=== PATIENT | female | born 1960 | race Caucasian/White ===

== ENCOUNTER 2016-10-15 23:33 | Emergency (ER) | payer SELFPAY ==
--- NOTE | 2016-10-16 00:30 | NUR ---
PATIENT LEFT WITHOUT BEING SEEN BY DR. MONAE. NO FURTHER CARE PROVIDED FOR PATIENT.
== END 2016-10-16 00:30 | disposition left against medical advice (07) ==
LOC: MED 23:33
DX: F41.9 Anxiety disorder, unspecified (principal); Z53.21 Procedure and treatment not carried out due to patient leaving prior to being seen by health care provider

== ENCOUNTER 2018-02-09 02:15 | Emergency (ER) | payer OTHER ==
[~2018-02-09] VITALS: Ht 157.5 cm; Wt 69.1 kg
[2018-02-09 02:15] VITALS: BP 114/80
[~2018-02-09 02:15] MED LIST: ESK300 PO
--- NOTE | 2018-02-09 02:15 | NUR ---
PATIENT AMBULATED TO ER BED 12.
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
--- NOTE | 2018-02-09 03:00 | NUR ---
DR. MONAE AT BEDSIDE TO EVALUATE PT.
[2018-02-09] MEDS ORDERED: NACL 0.9% 1,000 ML IV ONE (03:10)
--- NOTE | 2018-02-09 03:18 | NUR ---
PATIENT ELOPED FROM FACILITY. DISCHARGE INSTRUCTIONS NOT GIVEN TO PATIENT. DR. MONAE NOTIFIED.
== END 2018-02-09 03:18 | disposition left against medical advice (07) ==
LOC: MED 02:15
DX: R10.13 Epigastric pain (principal); Z53.21 Procedure and treatment not carried out due to patient leaving prior to being seen by health care provider

== ENCOUNTER 2018-02-09 04:25 | Inpatient (IN) | payer OTHER ==
[~2018-02-09] VITALS: Ht 157.5 cm; Wt 69.9 kg
[2018-02-09 04:25] VITALS: BP 114/74
--- NOTE | 2018-02-09 04:25 | NUR ---
BIB EMS WITH RESTRAINTS. RESTRAINTS REMOVED UPON [facility] ER ADDMISSION. PT COOPERATIVE. PT WAS PUT ON 5150 HOLD BY CARLITOS BHAT. PT WAS SEEN WALKING IN THE STREET WITH TRAFFIC. PT SHOWS INTENT TO HARM SELF AND IS A DANGER TO SELF. SHE IS A&Ox4. VSS. PLACED IN ROOM 5 WITH SITTER KAMRYN ADAN. SUICIDAL PRECAUTIONS IN PLACE. ER AWARE. CONTINUE TO MONITOR.
--- NOTE | 2018-02-09 04:25 | NUR ---
PT AMANDA BLS. TAKEN TO BED 5
--- NOTE | 2018-02-09 04:32 | NUR ---
PT DISROBED COMPLETELY AND DRESSED IN HOSPITAL GOWN AND SOCKS. PERSONAL BELONGINGS GIVEN TO SECURITY FOR STORING. BEDSIDE EQUIPMENT REMOVED AND CABINETS AND CONTAINERS LOCKED. SITTER PLACED AT BEDSIDE WITHIN 3 FEET FOR MONITORING.
[2018-02-09] MEDS ORDERED: NACL 0.9% 1,000 ML IV ONE (04:46)
[2018-02-09 05:18] LABS: BASOPHILS # (AUTO) 0.1 K/uL (0.00-0.22); BASOPHILS % (AUTO) 0.7 % (0.0-2.0); EOSINOPHILS # (AUTO) 0.1 K/uL (0-0.4); EOSINOPHILS % (AUTO) 1.7 % (0.0-4.0); HEMATOCRIT 33.6 % (36-48); LYMPHOCYTES # (AUTO) 1.6 K/uL (2.5-16.5); LYMPHOCYTES % (AUTO) 18.1 % (20.5-51.1); MEAN CORPUSCULAR HEMOGLOBIN 30 pg (27-31); MEAN CORPUSCULAR HGB CONC 33 g/dL (33-37); MEAN CORPUSCULAR VOLUME 91.9 fL (80-94); MONOCYTES # (AUTO) 0.8 K/uL (0.8-1.0); MONOCYTES % (AUTO) 9.2 % (1.7-9.3); NEUTROPHILS # (AUTO) 6.2 K/uL (1.8-7.7); NEUTROPHILS % (AUTO) 70.3 % (42.2-75.2); PLATELET COUNT (AUTO) 228 K/uL (140-450); RED BLOOD CELL COUNT(AUTO) 3.66 MIL/uL (4.20-5.40); RED CELL DISTRIBUTION WIDTH 15.3 % (11.6-13.7); WHITE BLOOD COUNT (AUTO) 8.8 K/uL (4.8-10.8)
[2018-02-09 05:26] LABS: BILIRUBIN,URINE NEGATIVE (NEGATIVE); BLOOD, URINE SMALL (NEGATIVE); LEUKOCYTE ESTERASE ,URINE NEGATIVE (NEGATIVE); NITRITE, URINE NEGATIVE (NEGATIVE); UGLUCOSE NEGATIVE (NEGATIVE)
[2018-02-09 05:27] LABS: APPEARANCE,URINE CLEAR (CLEAR); COLOR,URINE YELLOW (YELLOW)
[2018-02-09 05:31] LABS: RBC,URINE 0-5 (RARE) /HPF (0-5); WBC,URINE 0-5 (RARE) /HPF (0-5)
[2018-02-09 05:32] LABS: BARBITURATE, URINE NEG. ng/ml (NEG <=200); BENZODIAZEPINE, URINE NEG. ng/mL (NEG <=200); CANNABINOID, URINE NEG. ng/mL (NEG <=50); COCAINE, URINE NEG. ng/mL (NEG <=300); OPIATE, URINE NEG. ng/mL (NEG <=2000); PHENCYCLIDINE SCREEN,URINE NEG. ng/mL (NEG <=25)
[2018-02-09 05:58] LABS: ALBUMIN 2.8 g/dL (3.4-5.0); ANION GAP 13.1 (8-16); ASPARTATE AMINOTRANSFERASE 40 U/L (15-37); CARBON DIOXIDE 23.1 mmol/L (21-32); CHLORIDE 110 mmol/L (98-107); CREATININE 1.1 mg/dL (0.6-1.3); GFR ARICAN-AMERICAN 66 mL/min (>90); GLUCOSE 153 mg/dL (74-106); POTASSIUM 3.2 mmol/L (3.5-5.1); SALICYLATE 5.3 mg/dL (2.8-20.0); SODIUM SERUM 143 mmol/L (136-145); TOTAL BILIRUBIN 0.2 mg/dL (0.0-1.0); UREA NITROGEN, BLOOD 7 mg/dL (7-18)
[2018-02-09 06:00] LABS: ACETAMINOPHEN < 0.5 ug/ml (10-30)
--- NOTE | 2018-02-09 06:21 | NUR ---
Note ericone in EDM - 02/09/18 at 0626 by JELENA Patient discharged with v/s stable. Written and verbal after care instructions given and explained by Dr Bojorquez. Patient alert, oriented and verbalized understanding of instructions. Ambulatory with steady gait. All questions addressed prior to discharge. ID band removed. Patient advised to follow up with PMD. Rx of Keflex 500 mg given. Patient educated on indication of medication including possible reaction and side effects. Opportunity to ask questions provided and answered.
--- NOTE | 2018-02-09 07:10 | NUR ---
RECEIVED REPORT FROM LEVON CONTEH FOR CONTINUITY OF CARE. KAMRYN ADAN SITTING AT BEDSIDE. PT RESTING IN NO APPEARENT DISTRESS WITH EVEN AND UNLABORED RR.
--- NOTE | 2018-02-09 07:24 | NUR ---
PT PROVIDED WITH 3 GLASSES OF ICE WATER ONE AT A TIME PER REQUEST. PT TOLERATED WELL
--- NOTE | 2018-02-09 07:26 | NUR ---
FOOD TRAY GIVEN
--- NOTE | 2018-02-09 07:28 | NUR ---
PT RAISING VOICE AND STATING " MAY THE ONES YOU LOVE TODAY" TO STAFF. ATTEMPTED TO TALK TO PT TO CALM PT. PT CONTINUES TO CURSE AND THREATEN STAFF.
--- NOTE | 2018-02-09 07:35 | NUR ---
PT CONTINUING TO YELL AND CURSE AT STAFF WITH RACIAL SLURES.
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
--- NOTE | 2018-02-09 09:29 | NUR ---
Psychaitrist evaluating patient via TelePsych.
[2018-02-09] MEDS ORDERED: diphenhydrAMINE 50 MG/ML VIAL IVP ONE (09:45)
--- NOTE | 2018-02-09 10:03 | NUR ---
PT PROVIDED WITH WATER MILK AND JUICE
[2018-02-09] MEDS ORDERED: LITHIUM CARBONATE 300 MG TAB PO SCH (10:30)
--- NOTE | 2018-02-09 10:47 | NUR ---
Late Entry- The following facilities were contacted and had no available bed: Zhane Juarez, s/w Heri [facility] [place], s/w Chad Corona [facility], [facility] [place], s/w Danika [facility], s/w Jomar [facility], s/w Moses
--- NOTE | 2018-02-09 10:52 | NUR ---
PT AMBULATED TO THE BATHROOM WITH A STEADY GAIT. PT OBSERVATION MAINTAINED
--- NOTE | 2018-02-09 10:55 | NUR ---
PT BTB AND APPEARS TO BE SLEEPING IN NO APPEARENT DISTRESS AT THIS TIME
--- NOTE | 2018-02-09 11:08 | NUR ---
Packet faxed to Teetee at [facility] for review/placement.
[2018-02-09] MEDS ORDERED: POTASSIUM CHLORIDE 20% 40 MEQ/15 ML UDC PO ONE (11:25)
--- NOTE | 2018-02-09 12:12 | NUR ---
Packet faxed to Laurel at [facility] for review/placement.
--- NOTE | 2018-02-09 16:54 | NUR ---
Notified Dr. Clarke of psychiatric consult. Patient's face sheet faxed to Dr. Salgado's office.
--- NOTE | 2018-02-09 17:02 | NUR ---
Dr. Clarke evaluating patient at bedside.
--- NOTE | 2018-02-09 17:35 | NUR ---
PT GIVEN DINNER TRAY.
--- NOTE | 2018-02-09 18:20 | NUR ---
RECEIVED REPORT FROM ED RN. PT IS AMBULATORY. 51/50 HOLD. PT IS A POOR HISTORIAN. PT'S LUNG SOUNDS BILATERALLY HAVE SLIGHT WHEEZES. S1S2 HEARD. PT'S SKIN IS NOT INTACT; RIGHT FOREARM SCAB AND SCRATCHES, RIGHT HEEL BLISTER. PT ABD IS SOFT, TENDER. PT COMPLAINS OF ABD PAIN AND LOWER BACK PAIN 7/10. PT IS AFEBRILE. PT IS a&0X4. BED IS LOCKED AND IN LOWEST POSITION, ALARM ON.
--- NOTE | 2018-02-09 18:20 | NUR ---
Patient will be admitted to [facility]. Admited to ICU(M/S). Will go to room 6. Belongings list completed. Report to ROCAEL CONTEH .
--- NOTE | 2018-02-09 19:34 | NUR ---
GAVE REPORT TO MARQUISE CONTEH, FOR CONTINUATION OF CARE
--- NOTE | 2018-02-09 19:35 | NUR ---
RECEIVED REPORT FROM MORNING RN FOR CONTINUITY OF CARE. VS STABLE AT THIS TIME. PT DOES NOT APPEAR TO BE IN ANY PAIN OR IN ANY SIGNS OF DISTRESS. PT DOES NOT VOICE ANY SI AT THIS TIME. PT ABLE TO FOLLOW COMMANDS AND MAKE NEEDS KNOWN. LUNG SOUNDS CLEAR. PT IN ROOM AIR. S1+S2 HEARD. PULSES PALPABLE IN ALL EXTREMITIES. DENIES CHEST PAIN. ABDOMEN ROUND, SOFT, AND NONDISTENDED. BS ACTIVE IN ALL QUADRANTS. PT ABLE TO USE BEDSIDE COMMODE OR BEDPAN. RECEIVED PT WITH RIGHT HAND 20G PERIPHERAL IV ACCESS. ALL SAFETY PRECAUTIONS ARE IN PLACE AT THIS TIME. WILL CONTINUE TO MONITOR PT.
[2018-02-09 20:00] VITALS: BP 113/63
--- NOTE | 2018-02-09 20:00 | NUR ---
PT'S SON ZEFERINO AND DAUGHTER GALDINO CAME TO VISIT. THEY WERE GIVING INFORMATION REGARDING PT'S HISTORY. THEY WERE SAYING THAT PT CANNOT TAKE HALOPERIDOL AND THAT SHE WAS IN A "COMA" BEFORE FROM BEING GIVEN THE SAID MEDICATION. INFORMED THEM THAT THE SAID ALLERGY WAS INCLUDED IN PT'S CHART. WHEN PT SAW HER CHILDREN, PT WAS SAYING SHE DOES NOT WANT TO SEE THEM, BUT THEN LATER ON WANTED TO SPEAK WITH THEM. GALDINO AND ZEFERINO WANTED TO BE UPDATED REGARDING PT CONDITION, BUT PT ONLY WANTS THEM TO KNOW IF SHE'S DOING OKAY OR NOT, AND NOT GIVE ANY SPECIFIC DETAILS. WILL ENDORSE TO THE NEXT SHIFT.
[2018-02-09] MEDS: MORPHINE SULFATE 2 MG/ML SYR IVP PRN (20:17)
[2018-02-09] MEDS: ONDANSETRON 4 MG/2 ML VIAL IVP PRN (21:00)
--- NOTE | 2018-02-09 22:44 | NUR ---
Spoke to Ale at [facility] currently evaluating chart for possible placement,Kendra charge account authorizer nurse made aware.
[2018-02-09] MEDS: LORazepam 2 MG/ML VIAL IVP PRN (22:50)
--- NOTE | 2018-02-10 00:25 | NUR ---
PT CURRENTLY TRYING TO SLEEP AT THIS TIME. NO CHANGE IN CONDITION. PT COOPERATIVE AND KEPT ASKING FOR SOMETHING TO DRINK. ALL SAFETY PRECAUTIONS ARE IN PLACE. WILL CONTINUE TO MONITOR PT.
--- NOTE | 2018-02-10 03:20 | NUR ---
NO FEVER AT THIS TIME. PT WOKE UP AND WAS ASKING FOR SOME SODA. PT WAS C/O ACID REFLUX. INFORMED PT THAT SODA SHOULD BE AVOIDED. PT STATES THAT SHE KNOWS BUT SHE LIKES SODA AND INSIST ON DRINKING IT.
[2018-02-10] MEDS: MORPHINE SULFATE 2 MG/ML SYR IVP PRN ×2 (03:43→10:27)
[2018-02-10 04:00] VITALS: BP 102/59
--- NOTE | 2018-02-10 06:00 | NUR ---
PT AWAKE AT THIS TIME. ASKING FOR SOMETHING TO DRINK AGAIN. NO CHANGE IN CONDITION AT THIS TIME.
[2018-02-10] MEDS: ACETAMINOPHEN 325 MG TAB PO PRN (06:18)
--- NOTE | 2018-02-10 07:17 | NUR ---
REPORT GIVEN TO MORNING RN FOR CONTINUITY OF CARE. PT IN STABLE CONDITION AT THIS TIME.
--- NOTE | 2018-02-10 07:40 | NUR ---
RECEIVED REPORT FORM NIGHT NURSE. PT A&Ox4. NO SUICIDAL IDEATIONS AT THIS TIME. LUNG SOUNDS CLEAR BOWEL SOUNDS ACTIVE. IV PATENT. SKIN WARM DRY AND INTACT. SEEMS AGITATED. WILL CONTINUE TO MONITOR.
[2018-02-10] MEDS: LORazepam 2 MG/ML VIAL IVP PRN ×3 (07:48→17:08)
[2018-02-10] MEDS: ONDANSETRON 4 MG/2 ML VIAL IVP PRN (07:49)
--- NOTE | 2018-02-10 08:28 | NUR ---
WOUND CONSULT HERE FOR HER HEEL WOUND. WILL FOLLOW UP
--- NOTE | 2018-02-10 08:45 | NUR ---
WOUND CARE EVALUATION NOTES: REASON FOR EVALUATION: RIGHT HEEL WOUND SKIN ASSESSMENT DONE ON THIS 57 Y/O FEMALE PATIENT ADMITTED TO [facility], WITH INITIAL DIAGNOSIS OF 5150 DANGEROUS TO SELF. PAST MEDICAL HISTORY INCLUDE GERD, DEPRESSION AND SCHIZOPHRENIA. ALL ABOVE INFORMATION WAS OBTAINED FROM THE ADMISSION H&P. LABS ARE WBC 8.8, H/H 11.0/33.6, GLUCOSE 153, AND ALBUMIN 2.8. PATIENT IS MEDICATED FOR BEHAVIOR EARLIER PER CHARGE NURSE, EYES OPENED WHEN TALK TO HER BUT NOT ABLE TO ANSWER QUESTIONS. PT. FOLLOW SIMPLE DIRECTIONS ABLE TO TURN WHEN ASKED. SKIN WARM AND DRY TO TOUCH, TOENAILS ARE SHORT AND THICKENED, FUNGALLY LOOKING, NO EDEMA, NO HAIR GROWTH, BLE ARE DRY AND FLAKY, WITH FOUL ODOR AND BILATERAL PEDAL PULSES PRESENT AND NORMAL. TATTOO TO RIGHT SHOULDER, CONTINENT OF BOWEL AND BLADDER. PLAN OF CARE DISCUSSED WITH PT. AND PRIMARY RN. PT. TEACHING NEED TO REINFORCE. INTEGUMENTARY: -RIGHT FOREARM SCABS, NO REDNESS -MID ABDOMEN OLD HEALED SURGICAL SCAR -BLE DRY AND FLAKY WITH MULTIPLE PIN POINTS DRY SCABS, NO REDNESS -BILATERAL CRACKED DRY HEELS WITH DEBRIS -RIGHT ACHILLES HEEL SMALL DRY SCAB 0.5X0.5 CM. RADHA SCAB SKIN INTACT. RECOMMENDATIONS: -CLEANSE BILATERAL LE, FEET AND RIGHT ACHILLES HEEL WITH MILD SOAP AND WATER, PAT DRY, APPLY HYDRAGUARD AND ADJUSTMENT EXAMINER BIDWC -APPLY HYDRAGUARD TO RIGHT FOREARM SCABS AND ADJUSTMENT EXAMINER BIDWC -TURN AND REPOSITION PATIENT Q 2H -OFFLOAD BILATERAL HEELS BY PLACING PILLOWS UNDER CALVES AT ALL TIMES, UNLESS OTHERWISE CONTRAINDICATED -KEEP SKIN CLEAN AND DRY AT ALL TIMES. RECOMMENDATIONS DISCUSSED WITH PRIMARY RN WILL FOLLOW UP PATIENT PRN. PLEASE CONTACT WOUND CARE NURSE FOR ANY QUESTIONS AND CHANGES IN SKIN CONDITION.
[2018-02-10] MEDS: ENOXAPARIN 40 MG/0.4 ML SYR SUBQ SCH (08:51)
[2018-02-10] MEDS: LITHIUM CARBONATE 300 MG TAB PO SCH (08:52)
--- NOTE | 2018-02-10 11:16 | NUR ---
PATIENT HAS BEEN SCREENED AND CATEGORIZED HIGH NUTRITION RISK. PATIENT WILL BE SEEN WITHIN 1-2 DAYS OF ADMISSION. 02/10/18 02/11/[address]
[2018-02-10 12:00] VITALS: BP 126/74
--- NOTE | 2018-02-10 12:36 | NUR ---
[facility] aware patient is in ICU unit. will continue to look for placement. will update unit when new information is available.
[2018-02-10] MEDS: HYDRAGUARD CREAM TP SCH (13:30)
--- NOTE | 2018-02-10 14:29 | NUR ---
CM NOTE INITIAL REVIEW FAXED TO [facility] [phone] MADALYN # [phone]
--- NOTE | 2018-02-10 16:13 | NUR ---
GAVE REPORT TO TELE NURSE. PT ALERT AND AWAKE. STABLE AT TIME OF TRANSFER.
[2018-02-10 16:20] VITALS: BP 127/79
--- NOTE | 2018-02-10 16:20 | NUR ---
RECEIVED PT REPORT FROM ICU NURSE AT BEDSIDE. PT DX 5150. PT AAOx4. NO SUICIDAL IDEATIONS AT THIS TIME. IV NOTED TO THE RIGHT HAND 22G, PATENT, INTACT AND ASYMPTOMATIC. SKIN WARM DRY AND INTACT. NO AGITATION AT THIS TIME. WILL CONTINUE TO MONITOR.
--- NOTE | 2018-02-10 16:20 | NUR ---
DENIES SI AT THIS TIME. 1:1 SITTER.
--- NOTE | 2018-02-10 17:05 | NUR ---
PT WALKED OUT OF THE ROOM, CHARGE NURSE MADAN ASKED PT TO STAY IN HER ROOM. PT GETS AGITATED, POOPED ON THE FLOOR. PT TOOK OFF HER GOWN, USING FOUL LANGUAGES. ATIVAN GIVEN ORDERED FOR AGITATION.
--- NOTE | 2018-02-10 17:50 | NUR ---
PT SLEEPING IN BED, NO S/S OF ACUTE DISTRESS. 1:1 SITTER.
--- NOTE | 2018-02-10 18:13 | NUR ---
No update from contacted facilities at this time. will endorse to manager shift to continue looking for placement. No bed vacancies at following hospitals: [facility]
--- NOTE | 2018-02-10 19:15 | NUR ---
REPORT GIVEN TO PARTNER MANAGEMENT CONSULTANT RN. PT IN STABLE CONDITION.
--- NOTE | 2018-02-10 19:15 | NUR ---
RECIEVED REPORT AT BEDSIDE FROM KWABENA RN DAYSHIFT NURSE, PT IN STABLE CONDITION SLEEPING IN LOW BED WITH SHEET AND NO GOWN ON. NO S/S OF PAIN OR DISTRESS NOTED.
--- NOTE | 2018-02-10 20:32 | NUR ---
PT IN BED AND AROUSABLE TO NAME. PT DID GIVE CONSENT TO DO VITAL SIGNS BUT REFUSED TEMPERATURE. B/P 134/69 P 68 R 18 02 IS 98% ON R/A. PT DID CONSENT TO GOWN, PT ORIENTED X1-2. SHE IS AWARE THAT SHE IS IN A HOSPITAL BUT SHE THOUGHT THAT SHE WAS IN A [facility]. PT ORIENTED TO PLACE BUT NOT AWARE OF THE DATE. PT C/O OF BEING COLD AND THIRSTY. WHEN NURSE WENT TO GET BLANKET PT REACHED FOR MUG OF WATER , GOT THE BED WET TOOK OFF HER GOWN AND WENT TO LAY DOWN OIN OTHER BED. BED LINEN CLEANED UP AND PT ASSISTED TO ORIGINAL BED. SITTER AT BEDSIDE. FOR 5150 HOLD.
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
--- NOTE | 2018-02-10 22:00 | NUR ---
PT SON ZEFERINO CALLED AND WAS CONCERNED THAT HIS MOTHER RECEIVE HER LITHUIM AND HE SAID THAT HER PROBLEM WAS NOT TAKING THE MEDICATION PRESCRIBED, FOR 1 MONTH WHICH CAUSED HER TO HAVE KIDNEY PROBLEMS CAUSING ANOTHER RECENT HOSPITALIZATION . LEONIE MCGARRY ALSO INFORMED STAFF THAT HIS MOTHER SMOKES UP TO 3 PACKS DAILY AND THAT WE OUGHT TO GIVE PT THE NICOTINE PATCH BECAUSE SHE CANNOT SMOKE IN THE HOSPITAL.
--- NOTE | 2018-02-11 00:24 | NUR ---
PT REFUSE TO KEEP HOSPITAL GOWN ON, SHE IS LYING IN LOW BED WITH SIDE RAILS UP X 4 AND USING A SHEET TO COVER UP. PT HAS EYES CLOSED, NO S/S OF PAIN OR DISTRESS. SITTER AT BEDSIDE.
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
[2018-02-11] MEDS: HYDRAGUARD CREAM TP SCH ×2 (01:00→13:00)
[2018-02-11] MEDS: LORazepam 2 MG/ML VIAL IVP PRN ×2 (01:04→08:27)
--- NOTE | 2018-02-11 03:30 | NUR ---
PT IN BED NAKED WITH SHEET OVER HER. PT HAS A CALM DEMEANER AT THIS TIME , SHE IS REQUESTED SOMETHING TO DRINK AND A BLANKET WHICH WAS PROVIDED TO HER. SITTER AT BEDSIDE.
[2018-02-11 06:00] VITALS: BP 128/80
--- NOTE | 2018-02-11 06:00 | NUR ---
PT IN BED AWAKE. PT STILL REFUSES TO WEAR CLOTHES. PT CALM AND NON COMBATIVE AT THIS TIME, SITTER AT BEDSIDE.
--- NOTE | 2018-02-11 07:12 | NUR ---
GAVE REPORT TO MENA CONTEH DAYSHIFT NURSE PT IN STABLE CONDITION.
--- NOTE | 2018-02-11 07:16 | NUR ---
RECEIVED REPORT FROM NIGHTSHIFT NURSE. PATIENT PRESENTS IN HIGH FOWLERS POSITION AND APPEARS AGITATED. PATIENT IS REQUESTING FOR A SODA. IV NOTED ON PATIENT'S RIGHT HAND 22G SL. PATIENT IS ON A 5150 HOLD WITH A 1:1 SITTER. PATIENT DOES SHOW SIGNS OF WANTING TO HURT HERSELF. NO SIGNS OF HALLUCINATIONS AT THIS TIME. PATIENT IS ALERT AND ORIENTED X2 TO NAME AND BIRTHDAY. WILL CONTINUE TO MONITOR PATIENT.
[2018-02-11 08:00] VITALS: BP 129/91
[2018-02-11] MEDS: LITHIUM CARBONATE 300 MG TAB PO SCH ×2 (08:05→17:49)
--- NOTE | 2018-02-11 08:27 | NUR ---
PATIENT APPEARS AGITATED AT THIS TIME. PATIENT ASKING FOR A SODA ALTHOUGH ONE WAS GIVEN WITH BREAKFAST. ADMINISTERED ATIVAN TO PATIENT.
[2018-02-11] MEDS: ENOXAPARIN 40 MG/0.4 ML SYR SUBQ SCH (09:00)
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
--- NOTE | 2018-02-11 09:20 | NUR ---
02/11/18 RD INITIAL ASSESSMENT COMPLETED PLEASE REFER TO NUTRITION ASSESSMENT UNDER CARE ACTIVITY FOR ESTIMATED NEEDS. RECOMMENDATIONS: 1. CONTINUE REGULAR DIET TOLERATED. 2. ENCOURAGE PO INTAKES. 3. APPRECIATE FOOD PREFERENCES. 4. RD WILL FOLLOW UP IN 2-3 DAYS; HIGH RISK. J [address], [facility]
--- NOTE | 2018-02-11 10:35 | NUR ---
ATTEMPTED TO CALL PATIENT'S FAMILY AGAIN. NO ANSWER FROM MOTHER OR SON. NOT ABLE TO LEAVE VOICEMAIL ON EITHER PHONE NUMBERS. WILL ATTEMPT TO CALL AGAIN.
--- NOTE | 2018-02-11 10:50 | NUR ---
PATIENT REMOVED IV LINE. RETRIEVED IV WITH CATHETER STILL INTACT. ASKED PATIENT IF I CAN START A NEW ONE. PATIENT REFUSED. WILL NOTIFY ATTENDING MD.
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
[2018-02-11] MEDS: NICOTINE TRANSD SYS 21 MG/24 HR PATCH TD SCH (11:23)
[2018-02-11] MEDS ORDERED: MUPIROCIN 2% OINT 22 GM TUBE TP SCH (11:40)
--- NOTE | 2018-02-11 12:07 | NUR ---
PATIENT SOILED HERSELF AND REFUSES BEDPAN. CHANGED PATIENT'S GOWN AND BED SHEETS. NO SIGNS OF INJURY. WILL CONTINUE TO MONITOR PATIENT.
--- NOTE | 2018-02-11 12:25 | NUR ---
CALLED PATIENT'S SON. NO ANSWER. NOT ABLE TO LEAVE VOICEMAIL.
[2018-02-11] MEDS ORDERED: LORazepam 1 MG TAB PO PRN (12:35)
--- NOTE | 2018-02-11 12:55 | NUR ---
[facility] OF [facility]IENT AND ASSISTING WITH PLACEMENT. THERE ARE CURRENTLY NO BEDS AVAILABLE BUT ANOTHER PACKET HAS BEEN SENT TO [facility] FOR POSSIBLE DISCHARGES.
[2018-02-11] MEDS: CHLORHEXADINE GLUC 2% CLOTH TP SCH (13:19)
--- NOTE | 2018-02-11 13:19 | NUR ---
CHANGED PATIENT WITH STAFF SCIENTIST'S. PATIENT URINATED IN BED AND REFUSES THE BED RAY. PATIENT IS AGITATED AT THIS TIME. ADMINISTERED ATIVAN 2 MG PO TO PATIENT. WILL CONTINUE TO MONITOR PATIENT.
--- NOTE | 2018-02-11 13:52 | NUR ---
PATIENT REFUSED BACTROBAN OINTMENT FOR NOSE. EXPLAINED BENEFITS OF MEDICATION. PATIENT STILL REFUSED. WILL OFFER MEDICATION AGAIN.
[2018-02-11] MEDS ORDERED: ONDANSETRON 4 MG ODT SL PRN (14:50)
--- NOTE | 2018-02-11 15:14 | NUR ---
PATIENT RESTING. NO DISTRESS NOTED. NO SIGNS OF INJURY OR SKIN BREAKDOWN. WILL CONTINUE TO MONITOR PATIENT.
[2018-02-11 16:00] VITALS: BP 135/89
--- NOTE | 2018-02-11 16:33 | NUR ---
PATIENT RESTING AT THIS TIME. WILL CONTINUE TO MONITOR PATIENT.
--- NOTE | 2018-02-11 17:25 | NUR ---
PATIENT RESTING QUIETLY IN ROOM. WILL CONTINUE TO MONITOR PATIENT.
--- NOTE | 2018-02-11 18:10 | NUR ---
ABLE TO FEED PATIENT DINNER FOOD. PATIENT REQUESTED TO EAT THE FOOD LATER TONIGHT. PATIENT TOLERATED WELL.
[2018-02-11] MEDS: MUPIROCIN CA NASAL 2% 1GM TUBE NS SCH (18:45)
--- NOTE | 2018-02-11 19:13 | NUR ---
GAVE REPORT TO NIGHTSHIFT NURSE. PATIENT HAS RESTRAINTS ON BILATERAL WRISTS. PATIENT IN STABLE CONDITION.
--- NOTE | 2018-02-11 19:15 | NUR ---
RECEIVED REPORT FROM DAY SHIFT NURSE. PT IN BED, AWAKE. NO SUICIDAL IDEATION NOTED. NO C/O PAIN. PT HAS LENNOX. SOFT WRIST RESTRAINTS. NO DISTRESS NOTED. 1:1 SITTER.
--- NOTE | 2018-02-11 19:35 | NUR ---
RADHA CARE, GOWN AND LINEN CHANGED BY MONKEY BREEDER. PT CALM AND COOPERATIVE. NO C/O PAIN OR DISCOMFORT.
[2018-02-11] MEDS: ACETAMINOPHEN 325 MG TAB PO PRN (20:41)
[2018-02-11] MEDS: LORazepam 1 MG TAB PO PRN (20:41)
--- NOTE | 2018-02-11 20:49 | NUR ---
PT AGITATED AND C/O MILD BACK PAIN 3/10 SCALE. ATIVAN 1 MG PO FOR AGITATION GIVEN AND TYLENOL 650 MG PO FOR MILD PAIN GIVEN ORDERED.
--- NOTE | 2018-02-11 22:50 | NUR ---
PT SLEEPING. NO S/S OF PAIN OR DISCOMFORT. 1:1 SITTER.
[2018-02-12] VITALS: BP 121/80
[2018-02-12] MEDS: HYDRAGUARD CREAM TP SCH ×2 (00:44→13:05)
--- NOTE | 2018-02-12 01:30 | NUR ---
PT SLEEPING. RESP EVEN AND UNLABORED. NO S/S OF PAIN.
--- NOTE | 2018-02-12 03:35 | NUR ---
PT ASKED FOR WATER TO DRINK. WATER PROVIDED. NO C/O PAIN OR DISCOMFORT.
--- NOTE | 2018-02-12 05:11 | NUR ---
PT WAS CLEANED AND CHANGED BY UNEMPLOYMENT SPECIALIST. PT CALM AND COOPERATIVE. NO DISTRESS NOTED.
[2018-02-12] MEDS: LORazepam 1 MG TAB PO PRN ×2 (05:20→12:47)
--- NOTE | 2018-02-12 05:24 | NUR ---
PT STARTED TO GET AGITATED. ATIVAN 1 MG PO GIVEN. Addendum: 02/12/18 at 0605 by Yoel Colindres RN PT STARTING TO GET AGITATED. PT WANTS TO GO HOME. ATIVAN 1 MG PO GIVEN.
--- NOTE | 2018-02-12 06:00 | NUR ---
PT IS AGITATED ASKING FOR CIGARETTE. EXPLAINED TO PT SHE CAN'T SMOKE HERE AND SHE HAS NICOTINE PATCH. PT STILL INSISTING TO HAVE CIGARETTE.
[2018-02-12] MEDS: ACETAMINOPHEN 325 MG TAB PO PRN ×2 (06:30→09:54)
--- NOTE | 2018-02-12 06:30 | NUR ---
PT C/O MILD LOWER BACK PAIN. TYLENOL 650 MG GIVEN.
--- NOTE | 2018-02-12 07:03 | NUR ---
PT SLEEPING. NO S/S OF DISTRESS NOTED. ENDORSED PT TO DAY SHIFT NURSE. PT IN STABLE CONDITION.
--- NOTE | 2018-02-12 07:04 | NUR ---
RECEIVED REPORT FROM PM NURSE AT THE BEDSIDE. PT LYING DOWN ON HER . PT AWAKE ON HER BED. PT HAS SOFT WRIST RESTRAIN . PT ASKING FOR COFFEE. INFORMED THAT BREAKFAST IS ON WAY, WILL PROVIDE COFFEE AND BREAKFAST SHORTLY. HS NO SI. PT CALM AT THIS TIME. WILL CONTINUE TO MONITOR PT.
--- NOTE | 2018-02-12 07:45 | NUR ---
SON ZEFERINO CALLED IN, ASKING UPDATE ON HER MOTHER. INFORMED HIM THAT PT IS CALM AND NON-AGITATED AT THIS TIME. LITHIUM LEVEL IS 0.68. WAS ASKING IF ANY MEDS WAS GIVEN TO THE PT. INFORMED THAT PT WAS GIVEN ATIVAN THIS MORNING AND TYLENOL FOR PAIN MANAGEMENT. WANTED TO TALK TO PT. PT SPEAKING RANDOM STUFF LIKE SHE WILL TODAY, WANTS TO WHERE HIS FATHER . PT TALKING TO HER SON IN HER [place] LANGUAGE. SON THAT THAT PT TOLD HIM THAT SHE WANTS TO HURT HERSELF. INFORMED THAT ALL MEASURE ARE IN PLACE FOR PT SAFETY AND WILL BE MORE ALERT. SON STATES TO CALL AGAIN LATER IN AFTERNOON AND TO CHECK ON HER. PT EATING BREAKFAST . SAMMIE AND COOPERATIVE. HAS NO RESTRAIN ON HER AT THIS TIME. WILL CONTINUE TO MONITOR PT.
--- NOTE | 2018-02-12 07:45 | NUR ---
PT LYING ON HER BED. PT TOOK HER SOFT RESTRAIN OFF FROM HER WRIST. NO AGITATION NOTED. NO SUICIDAL IDEATION. WILL CONTINUE TO OBSERVE THE PT.
[2018-02-12 08:00] VITALS: BP 122/91
--- NOTE | 2018-02-12 08:15 | NUR ---
PT COMPLAINING OF HER BACK PAIN. ASKING PAIN MEDS FOR HER BACK PAIN. INFORMED THAT SHE HAD TYLENOL THIS MORNING. STATES ITS NOT WORKING. INFORMED THAT WILL CHECK FOR PAIN MEDS . VERBALIZED UNDERSTANDING.
[2018-02-12] MEDS: LITHIUM CARBONATE 300 MG TAB PO SCH ×3 (08:25→17:27)
[2018-02-12] MEDS: NICOTINE TRANSD SYS 21 MG/24 HR PATCH TD SCH (08:25)
[2018-02-12] MEDS: ENOXAPARIN 40 MG/0.4 ML SYR SUBQ SCH (08:25)
--- NOTE | 2018-02-12 08:30 | NUR ---
ADMINISTERED MEDS TO PT ORDERED. PT TOLERATED WELL. PT ASKING FOR SHOWER. INFORMED THAT WILL NEED DOCTOR ORDER FOR THE SHOWER. WILL ASK WHEN DOC WILL BE VISITING HER LATER IN AFTERNOON. PT INSISTING FOR SHOWERING. LATER SHE CALM DOWN. WILL CONTINUE TO MONITOR PT.
--- NOTE | 2018-02-12 09:13 | NUR ---
PT GOT OFF FROM THE BED AND TRIED TO FIX THE TV. STATES THERE IS NO SOUND. WANTED TO FIX THE TV. EDUCATED HER ABOUT RISK INVOLVED OF ELECTRIC SHOCK. WILL CALL THE DANCE MASTER IN AFTERNOON TO FIX THE TV. PT GOT BACK TO BED SAFELY. PT SLEEPING ON HER BED AT THIS TIME. PT IS NON-AGITATED, CALM . NO SIGN OF DISTRESS.
--- NOTE | 2018-02-12 09:33 | NUR ---
PT ASKED TO TALK TO HER SON. ASKED TO CALL HER MOTHER SU [phone]. TALKING TO HER MOTHER, AGITATED AFTER TALKING TO MOTHER. PT ASKING ABOUT THE PAIN MEDS. INFORMED THAT WILL LOOK TALK TO DOCTOR FOR HER PAIN MEDS. PT SLEEPING AT THIS TIME.
--- NOTE | 2018-02-12 10:30 | NUR ---
PT WALKED AROUND THE HALLWAY X 3 . TOLERATED WELL. NO SIGN OF DISTRESS. PT CALM AND INTERACTING.
--- NOTE | 2018-02-12 11:15 | NUR ---
PT ASKED FOR TAKING SHOWER. TOOK SHOWER . CHARGE NURSE AWARE. WILL CONTINUE TO MONITOR PT.
--- NOTE | 2018-02-12 11:45 | NUR ---
TALKED TO PT . ASKED HER IF SHE HAS ANY SUICIDAL IDEATION, ANY INTENT TO HARM HERSELF OT HURT OTHERS. PT DENIES AND STATES THAT SHE HAS NO ANY SUICIDAL IDEATION OR INTENT TO HARM HERSELF. SHE HAS NO ANY INTENTION TO HURT OTHERS . CHARGE NURSE MADE AWARE . SENT PAPER FOR PSYCH RE-EVAL TO THE DR BOOKER. RECEIVED THE CONFIRMATION. PT EATING HER LUNCH AT THE BEDSIDE . PT CALM AND COOPERATIVE. NO SIGN OF DISTRESS. WILL CONTINUE TO MONITOR PT.
--- NOTE | 2018-02-12 11:49 | NUR ---
RESTRAIN ORDER COMPLETED AT 1149. PT TOOK HER SOFT RESTRAIN OFF FROM HER WRIST AT 0745 BY HERSELF . PT HAS BEEN MORE AND COOPERATIVE THAN BEFORE. NO EPISODES OF AGITATION . WILL CONTINUE TO MONITOR PT.
[2018-02-12] MEDS ORDERED: HYDROcodone/APAP 5/325 MG 1 TAB TAB PO PRN (12:50)
[2018-02-12] MEDS: MUPIROCIN CA NASAL 2% 1GM TUBE NS SCH (13:04)
[2018-02-12] MEDS: CHLORHEXADINE GLUC 2% CLOTH TP SCH (13:04)
--- NOTE | 2018-02-12 13:06 | NUR ---
ADMINISTERED SCHEDULED MEDS ORDERED AND THE [facility]CO FOR HER STOMACH AND BACK PAIN. EDUCTED PT NOT TO GET UP ,REST IN HER BED , CAN CAUSE DROWSINESS AND HIGH RISK FOR FALL. PT STATES WILL STAY IN BED. UNDERSTANDS TEACHING. WILL CONTINUE TO MONITOR PT.
--- NOTE | 2018-02-12 13:45 | NUR ---
CHECKED ON PT. PT YELLING, STATES THAT SHE HAS BAD STOMACH PAIN EXTENDING TOWARDS THE EPIGASTRIC REGION. ASKING FOR MYLANTA. STATES THAT MYLANTA TAKES HER PAIN IN STOMACH AWAY. PAGED DR CORONADO ABOUT PT STOMACH PAIN. ORDERED MORPHINE 2 MG IV ONE TIME DOSE. WILL CONTINUE TO MONITOR PT.
[2018-02-12] MEDS ORDERED: MAGNESIUM HYDROXIDE 2400 MG/30 ML UDC PO SCH (14:15)
[2018-02-12] MEDS ORDERED: MORPHINE SULFATE 2 MG/ML SYR IM/IVP SCH (14:15)
--- NOTE | 2018-02-12 14:15 | NUR ---
PT HAD TAKEN NORCO AN HOUR AGO. TOO CLOSE TO ADMINISTER MORPHINE. WILL CONTINUE TO MONITOR PT.
[2018-02-12] MEDS ORDERED: ALUMINUM HYD/MAG/SIMETHICONE 30 ML UDC PO PRN (14:25)
--- NOTE | 2018-02-12 14:32 | NUR ---
ADMINISTERED MYLATNA ORDERED. PT SEEN BY . WILL CONTINUE TO MONITOR PT.
--- NOTE | 2018-02-12 14:54 | NUR ---
PT SLEEPING AND CALM AT THIS TIME. WILL CONTINUE TO MONITOR PT.
--- NOTE | 2018-02-12 15:09 | NUR ---
PT AWAKE, REQUESTED TO MAKE CALL TO HER MOTHER, PT LEFT MESSAGE IN VOICE MAIL. PT IS CALM , LYING ON HER BED.
[2018-02-12 16:02] VITALS: BP 129/87
--- NOTE | 2018-02-12 16:16 | NUR ---
PT COMPLAINING OF STOMACH BURN , MOANING BECAUSE OF THE PAIN. STATES SHE HAS THE PAIN AT HER EPIGASTRIC REGION. ADMINISTERED PROTONIX TO PT. PT SITTING ON HER BED. WILL CONTINUE TO MONITOR PT.
--- NOTE | 2018-02-12 17:29 | NUR ---
ADMINISTERED LITHIUM TO PT ORDERED. TAUGHT PT THAT SHE NEEDS TO TAKE THE MEDS WITH FOOD LITHIUM CAUSES THE GI UPSET. INFORMED HER TO DRINK PLENTY OF WATER M AVOID FOOD THAT CONTAINS CAFFEINE IN IT. PT VERBALIZED UNDERSTANDING. PT HAS THE FOOD TRAY , EATING HER DINNER. PT REFUSED THE DINNER PORTION, WANTED TO EAT SALAD ONLY.ENCOURAGED PT TO EAT BREAD TO PREVENT THE GI UPSET. PT VERBALIZED TO UNDERSTANDING OF TEACHING. WILL CONTINUE TO MONITOR PT.
--- NOTE | 2018-02-12 17:54 | NUR ---
PSYCHOLOGIST CALLED TO ASK IF PT IS ALERT. INFORMED THAT PT IS ALERT. WILL BE HERE TO ASSESS PT IN 15-20 MIN.
--- NOTE | 2018-02-12 19:00 | NUR ---
PT DISCHARGED MD ORDER. PT ALERT,ORIENTED AND IN STABLE CONDITION. PT GIVEN ALL HER DC INSTRUCTION AND THE PACKET . PT GIVEN PRESCRIPTION WITH DC PACKET. PT STATES THE MOM WILL PICK HER UP FROM THE PARKING IN FRONT OF HOSPITAL. ASKED IF SHE NEEDS BUS PASS. SHE DENIED. STATES SOMEONE FROM FAMILY WILL PICK HER UP. PT MOMS PHONE NUMBER GIVEN TO THE PT. PT LEFT HOSPITAL ON HER OWN AND WAS IN STABLE CONDITION.
[2018-02-12] MEDS ORDERED: PANTOPRAZOLE 40 MG TABEC PO SCH (21:00)
== END 2018-02-12 19:15 | disposition home or self-care (01) | DRG 241 ==
LOC: MED 04:25 → MIC 16:48 → MTU 02-10 16:10
PROVIDERS: ADMIT Hospitalist; ATTEND Hospitalist
DX: K29.70 Gastritis, unspecified, without bleeding (principal); E44.0 Moderate protein-calorie malnutrition; E83.51 Hypocalcemia; E87.8 Other disorders of electrolyte and fluid balance, not elsewhere classified; Z78.1 Physical restraint status; F25.0 Schizoaffective disorder, bipolar type; E87.6 Hypokalemia; F32.9 Major depressive disorder, single episode, unspecified; K21.9 Gastro-esophageal reflux disease without esophagitis; F17.210 Nicotine dependence, cigarettes, uncomplicated; Z98.891 History of uterine scar from previous surgery; Z88.8 Allergy status to other drugs, medicaments and biological substances; Z91.041 Radiographic dye allergy status; Z68.28 Body mass index [BMI] 28.0-28.9, adult
CPT/HCPCS: 36415; 80053; 80178; 80305; 81001; 84443; 85025; 87081; 96361; 96374; 99285; G0480; G0482; J1200; J1650; J2060; J2270; J2405

== ENCOUNTER 2018-05-23 01:50 | Inpatient (IN) | payer OTHER ==
[~2018-05-23] VITALS: Ht 160 cm; Wt 61.2 kg
[2018-05-23] MEDS ORDERED: LORazepam 2 MG/ML VIAL IVP ONE ×2 (02:00→06:25)
[2018-05-23 02:02] VITALS: BP 102/76
[2018-05-23] MEDS ORDERED: NACL 0.9% 1,000 ML IV SCH (02:02)
--- NOTE | 2018-05-23 02:09 | NUR ---
PATIENT PRESENTS TO ED WITH BIB DAUGHTER, C/O SHAKINESS ON HANDS AND FEET/NERVOUSNESS/ANXIETY X2 DAYS. PT STATES SHE HAS BEEN VERY STRESSED THE LAST FEW DAYS. DENIES N/V/D; SKIN IS PINK/WARM/DRY; AAOX4 WITH EVEN AND STEADY GAIT; LUNGS CLEAR BL; HR EVEN AND REGULAR; PT DENIES ANY FEVER, CP, SOB, OR COUGH AT THIS TIME; PATIENT STATES PAIN OF 0/10 AT THIS TIME; VSS; PATIENT POSITIONED FOR COMFORT; HOB ELEVATED; BEDRAILS UP X2; BED DOWN. ER MD MADE AWARE OF PT STATUS.
--- NOTE | 2018-05-23 02:09 | NUR ---
PT BIB WHEELCHAIR TO ER BED 8
[2018-05-23 02:45] LABS: HEMOGLOBIN 13.2 g/dL (12.0-16.0); MEAN CORPUSCULAR VOLUME 93.3 fL (80-94); WHITE BLOOD COUNT (AUTO) 14.9 K/uL (4.8-10.8)
[2018-05-23 02:46] LABS: MEAN CORPUSCULAR HEMOGLOBIN 29 pg (27-31); MEAN CORPUSCULAR HGB CONC 32 g/dL (33-37); PLATELET COUNT (AUTO) 248 K/uL (140-450); RED CELL DISTRIBUTION WIDTH 12.7 % (11.6-13.7)
[2018-05-23 02:50] LABS: ANION GAP 9.9 (8-16); CHLORIDE 103 mmol/L (98-107); CREATININE 1.7 mg/dL (0.6-1.3); GFR ARICAN-AMERICAN 40 mL/min (>90); GLUCOSE 158 mg/dL (74-106); POTASSIUM 3.9 mmol/L (3.5-5.1); SODIUM SERUM 133 mmol/L (136-145); UREA NITROGEN, BLOOD 28 mg/dL (7-18)
[2018-05-23 02:56] LABS: ALBUMIN 3.6 g/dL (3.4-5.0); ASPARTATE AMINOTRANSFERASE 14 U/L (15-37); TOTAL BILIRUBIN 0.2 mg/dL (0.0-1.0)
[2018-05-23 02:57] LABS: BARBITURATE, URINE NEG. ng/ml (NEG <=200); BENZODIAZEPINE, URINE NEG. ng/mL (NEG <=200); CANNABINOID, URINE NEG. ng/mL (NEG <=50); OPIATE, URINE NEG. ng/mL (NEG <=2000); PHENCYCLIDINE SCREEN,URINE NEG. ng/mL (NEG <=25)
[2018-05-23 03:06] LABS: COCAINE, URINE NEG. ng/mL (NEG <=300)
--- NOTE | 2018-05-23 04:02 | NUR ---
CALLED LAB TO GET AN UPDATE ON LABS/URINE, STRAND FORMING MACHINE OPERATOR SAID MACHINE HAD BEEN DOWN FOR A LITTLE WHILE BUT THEY ARE WORKING ON THE PATIENT'S SAMPLES NOW. WILL FOLLOW UP.
--- NOTE | 2018-05-23 05:45 | NUR ---
NEW IV STARTED TO LEFT HAND, PT TOLERATED WELL.
[2018-05-23] MEDS ORDERED: cefTRIAXone 1,000 MG VIAL ONE (05:48)
[2018-05-23 06:20] LABS: BILIRUBIN,URINE NEGATIVE (NEGATIVE); BLOOD, URINE NEGATIVE (NEGATIVE); COLOR,URINE YELLOW (YELLOW); LEUKOCYTE ESTERASE ,URINE NEGATIVE (NEGATIVE); NITRITE, URINE NEGATIVE (NEGATIVE); PH,URINE 7.5 (5.0-9.0); UGLUCOSE NEGATIVE (NEGATIVE)
[2018-05-23 06:21] LABS: RBC,URINE 0-5 (RARE) /HPF (0-5)
[2018-05-23 06:22] LABS: WBC,URINE 0-5 (RARE) /HPF (0-5)
[2018-05-23 06:23] LABS: APPEARANCE,URINE CLEAR (CLEAR)
[2018-05-23] MEDS ORDERED: ALBUTEROL 0.083% 2.5 MG/3 ML NEBU IH PRN (06:45)
[2018-05-23] MEDS ORDERED: ONDANSETRON 4 MG/2 ML VIAL IVP PRN ×2 (06:45→10:15)
[2018-05-23] MEDS ORDERED: HYDROcodone/APAP 5/325 MG 1 TAB TAB PO PRN ×2 (06:45→10:15)
[2018-05-23] MEDS ORDERED: LORazepam 2 MG/ML VIAL IVP PRN (06:45)
[2018-05-23] MEDS ORDERED: DEXT 5% /NACL 0.9% 1,000 ML IV SCH (06:45)
--- NOTE | 2018-05-23 06:55 | NUR ---
Patient will be admitted to care of DR DOE. Admited to MED-SURG. Will go to room 113. Belongings list completed. Report GIVEN TO HOUSE FELLOW FAIRY.
--- NOTE | 2018-05-23 07:00 | NUR ---
RECEIVED REPORT FROM CHILD CARE ASSOCIATE TEACHER FARI. PT IN STABLE CONDITION. VITALS STABLE. SLEEPING IN BED, WITH LIGHT SNORING. VERY DROWSY NOW, UNABLE TO ACCESS MENTAL STATUS. PT RECEIVED ATIVAN IN ED. LUNGS CTA. HEART RHYTHM REGULAR. FLACC 0. IV SITE ON RT WRIST 22G AND LT HAND 22 G PATENT AND ASYMPTOMATIC. ALL SAFETY PRECAUTIONS IN PLACE, WILL CONTINUE TO MONITOR.
--- NOTE | 2018-05-23 07:54 | NUR ---
ADMISSION ASSESSMENT INFO OBTAINED FROM MEDICAL RECORD AND FAMILY MEMBER AT BEDSIDE. PT IS LETHARGIC NOW. FAMILY MEMBER AT BEDSIDE DOES NOT KNOW WHEN/IF PT RECEIVED FLU VACCINE AND PNEUMOVAX.
--- NOTE | 2018-05-23 08:20 | NUR ---
FAMILY MEMBER AT BEDSIDE EDUCATED ON CONTACT PRECAUTIONS. HE VERBALIZED UNDERSTANDING.
[2018-05-23] MEDS ORDERED: LITHIUM CARBONATE 300 MG TAB PO SCH (09:00)
[2018-05-23] MEDS ORDERED: ENOXAPARIN 40 MG/0.4 ML SYR SUBQ SCH ×2 (09:00→10:30)
[2018-05-23] MEDS ORDERED: ALBUTEROL 0.083% 2.5 MG/3 ML NEBU INH PRN (10:10)
--- NOTE | 2018-05-23 10:19 | NUR ---
PAGED DR. SANTOYO. PER , PATIENT IS TRYING TO GET OUT OF BED AND NEEDS SEDATION. PT SEEN TO BE RESTLESS IN BED. NO ATIVAN IVP ORDERED.
[2018-05-23] MEDS: DEXT 5% /NACL 0.9% 1,000 ML IV SCH ×2 (10:20→21:10)
[2018-05-23 10:37] LABS: ALBUMIN 3.1 g/dL (3.4-5.0); ANION GAP 7.3 (8-16); CARBON DIOXIDE 26.9 mmol/L (21-32); CREATININE 1.5 mg/dL (0.6-1.3); POTASSIUM 4.2 mmol/L (3.5-5.1); TOTAL BILIRUBIN 0.2 mg/dL (0.0-1.0)
--- NOTE | 2018-05-23 10:38 | NUR ---
NOTIFIED DR. SANTOYO THAT PT IS RESTLESS IN BED AND TRYING TO GET OUT OF BED PER FAMILY MEMBER AT BEDSIDE. PER DR. SANTOYO, CONTINUE TO MONITOR PT FOR SAFETY. HE DOES NOT WANT TO ORDER MORE ATIVAN BECAUSE PT WAS VERY SEDATED THIS MORNING.
--- NOTE | 2018-05-23 10:40 | NUR ---
MOVED PT TO ROOM 109A, CLOSER TO THE NURSING STATION FOR CLOSER MONITORING.
--- NOTE | 2018-05-23 10:54 | NUR ---
PAGED DR. CAMPBELL. FAMILY MEMBER AT BEDSIDE IS YELLING, SAYING "I WILL [facility]". HE WANTS PT TO BE SEDATED.
--- NOTE | 2018-05-23 11:20 | NUR ---
NOTIFIED DR. CAMPBELL THAT PT IS RESTLESS AND TRYING TO GET OUT OF BED. DR. CAMPBELL WILL ORDER ATIVAN.
--- NOTE | 2018-05-23 12:06 | NUR ---
CM NOTE PER [facility] PORTAL, PATIENT'S PCP IS DR. ADRIEL MILLS PH# [phone]. SPOKE WITH RAFFAELE OF DR[facility] PH# [phone] WHO STATED THAT PATIENT FOLLOWS UP WITH DR. MODESTA PFEIFFER IN THEIR CLINIC AND THAT PATIENT IS SCHEDULED FOR OUTPATIENT FOLLOW UP ON MAY 29 2018 2:30 PM AT [address] [id number]. ATTEMPTED TO INFORM PATIENT OF HER OUTPATIENT FOLLOW UP SCHEDULE BUT PATIENT WAS SLEEPING. CECILLE CONTEH MADE AWARE OF PATIENT'S OUTPATIENT FOLLOW UP SCHEDULE.
[2018-05-23] MEDS: LORazepam 2 MG/ML VIAL IVP PRN (12:42)
--- NOTE | 2018-05-23 12:42 | NUR ---
ATIVAN IVP ADMINISTERED PER MD ORDERS FOR RESTLESSNESS.
--- NOTE | 2018-05-23 13:42 | NUR ---
PT SLEEPING IN BED, ONE HOUR AFTER ATIVAN IVP. NO S/S RESPIRATORY DISTRESS.
--- NOTE | 2018-05-23 13:45 | NUR ---
GAVE PRINTED OUTPT F/U APPOINTMENT DETAILS TO FAMILY MEMBER AT BEDSIDE.
[2018-05-23 14:22] LABS: BASOPHILS % (AUTO) 0.3 % (0.0-2.0); EOSINOPHILS # (AUTO) 0.2 K/uL (0-0.4); EOSINOPHILS % (AUTO) 1.5 % (0.0-4.0); HEMATOCRIT 38.9 % (36-48); HEMOGLOBIN 12.5 g/dL (12.0-16.0); LYMPHOCYTES # (AUTO) 1.9 K/uL (2.5-16.5); LYMPHOCYTES % (AUTO) 16.7 % (20.5-51.1); MEAN CORPUSCULAR HEMOGLOBIN 30 pg (27-31); MEAN CORPUSCULAR HGB CONC 32 g/dL (33-37); MEAN CORPUSCULAR VOLUME 92.2 fL (80-94); MONOCYTES # (AUTO) 0.8 K/uL (0.8-1.0); MONOCYTES % (AUTO) 7.3 % (1.7-9.3); NEUTROPHILS # (AUTO) 8.3 K/uL (1.8-7.7); NEUTROPHILS % (AUTO) 74.2 % (42.2-75.2); PLATELET COUNT (AUTO) 234 K/uL (140-450); RED BLOOD CELL COUNT(AUTO) 4.23 MIL/uL (4.20-5.40); RED CELL DISTRIBUTION WIDTH 13.8 % (11.6-13.7); WHITE BLOOD COUNT (AUTO) 11.2 K/uL (4.8-10.8)
--- NOTE | 2018-05-23 14:35 | NUR ---
PATIENT HAS BEEN SCREENED AND CATEGORIZED MODERATE NUTRITION RISK. PATIENT WILL BE SEEN WITHIN 3-5 DAYS OF ADMISSION. 05/25/18 05/27/[address]
--- NOTE | 2018-05-23 15:24 | NUR ---
LEONIE MCGARRY SPOKE WITH LAB NURSE REGARDING HOME MEDICATIONS. PER LAB NURSE, NO NEED TO RECONCILE OTHER MEDS (LITHIUM IS ALREADY IN SYSTEM).
--- NOTE | 2018-05-23 15:59 | NUR ---
SON ZEFERINO AT BEDSIDE. ANSWERED ALL OF SON'S QUESTIONS REGARDING PLAN OF CARE. SON VERBALIZED UNDERSTANDING.
--- NOTE | 2018-05-23 18:32 | NUR ---
SON ZEFERINO AT BEDSIDE, ASKING ABOUT SECOND LITHIUM DRAW.TOLD SON WE ARE STILL WAITING ON RESULTS. SON VERBALIZED UNDERSTANDING.
--- NOTE | 2018-05-23 19:24 | NUR ---
ENDORSED PLAN OF CARE TO BESS BENITEZ. PT IN STABLE CONDITION.
--- NOTE | 2018-05-23 19:25 | NUR ---
RECD. SLEEPING COMFORTABLY IN BED, RESPIRATION EVEN AND UNLABORED. IV OF D5NS AT 100 ML/HR INFUSING, RIGHT WRIST G24. EDENTULOUS. SAFETY MEASURES ENFORCED. NO APPEARANCE OF DISCOMFORT NOTED . VS STABLE.
--- NOTE | 2018-05-23 19:26 | NUR ---
Patient's Plan of Care was discussed and reviewed with BACTERIOLOGY RESEARCH ASSISTANT: BESS COLVIN. SAFETY MEASURES IN PLACE.
--- NOTE | 2018-05-23 19:45 | NUR ---
SITS UP IN BED, STILL WITH CLOSED EYES. INSTRUCTED TO LAY IN BED, OBEYED AND WENT BACK TO SLEEP.
[2018-05-23 20:00] VITALS: BP 122/81
--- NOTE | 2018-05-23 20:00 | NUR ---
OCCASIONALLY KICKS LEGS AND TURNS IN BED, SAFETY MEASURES ENFORCED.
--- NOTE | 2018-05-23 21:15 | NUR ---
SON CALLED FOLLOWING UP RESULT OF LITHIUM LEVEL, BLOOD DRAWN AT 1428. FOLLOW UP WITH RABIA OF LAB, STATED IT IS SENT OUT AND MAYBE IN A COUPLE OF HOURS RESULT WILL COME IN.
--- NOTE | 2018-05-23 21:30 | NUR ---
SITS ON BED, BUT DOES NOT ANSWER QUESTIONS. SEEMS CONFUSED. ASSISTED TO LAY IN BED, COOPERATIVE.
[2018-05-24] VITALS: BP 144/83
--- NOTE | 2018-05-24 01:05 | NUR ---
INFORMED DR. ESTRADA, PATIENT BP - 87/55, 86/57 IN EACH ARM, ASYMPTOMATIC. MONITOR PT. DON'T GIVE BP OR ANY MEDS THAT WILL LOWER BP.
--- NOTE | 2018-05-24 01:15 | NUR ---
TRIES TO GET OUT OF BED, ASSISTED BACK, OCCASIONALLY TURNS TO BOTH SIDES OF BED.
--- NOTE | 2018-05-24 05:00 | NUR ---
WOKE UP REQUESTED FOR WATER, A/OX1. NO RESPIRATORY DISTRESS NOTED.
[2018-05-24] MEDS: DEXT 5% /NACL 0.9% 1,000 ML IV SCH (05:08)
[2018-05-24 07:07] LABS: BASOPHILS % (AUTO) 0.3 % (0.0-2.0); EOSINOPHILS # (AUTO) 0.1 K/uL (0-0.4); HEMATOCRIT 37.2 % (36-48); HEMOGLOBIN 12.2 g/dL (12.0-16.0); LYMPHOCYTES # (AUTO) 1.7 K/uL (2.5-16.5); LYMPHOCYTES % (AUTO) 16.2 % (20.5-51.1); MEAN CORPUSCULAR HEMOGLOBIN 30 pg (27-31); MEAN CORPUSCULAR HGB CONC 33 g/dL (33-37); MEAN CORPUSCULAR VOLUME 91.8 fL (80-94); MONOCYTES # (AUTO) 0.8 K/uL (0.8-1.0); NEUTROPHILS # (AUTO) 7.7 K/uL (1.8-7.7); NEUTROPHILS % (AUTO) 74.5 % (42.2-75.2); PLATELET COUNT (AUTO) 225 K/uL (140-450); RED BLOOD CELL COUNT(AUTO) 4.05 MIL/uL (4.20-5.40); RED CELL DISTRIBUTION WIDTH 13.8 % (11.6-13.7); WHITE BLOOD COUNT (AUTO) 10.3 K/uL (4.8-10.8)
--- NOTE | 2018-05-24 07:10 | NUR ---
ENDORSED TO WERO DAVILA FOR CONTINUITY OF CARE.
--- NOTE | 2018-05-24 07:11 | NUR ---
RECEIVED BEDSIDE REPORT FROM PM SHIFT NURSE BESS. PT ASLEEP IN BED BUT AROUSED BY AUDITORY STIMULI. VERBALLY RESPONSIVE, NO C/O PAIN. CALL LIGHT WITHIN REACH.
[2018-05-24 07:24] LABS: ALBUMIN 3.2 g/dL (3.4-5.0); ANION GAP 10.2 (8-16); CARBON DIOXIDE 22.9 mmol/L (21-32); CREATININE 1.3 mg/dL (0.6-1.3); FREE T4 (FREE THYROXINE) 0.94 ng/dL (0.76-1.46); POTASSIUM 4.1 mmol/L (3.5-5.1); THYROID STIMULATING HORMONE 0.4 uIU/mL (0.34-3.74); TOTAL BILIRUBIN 0.1 mg/dL (0.0-1.0)
[2018-05-24 08:00] VITALS: BP 117/86
[2018-05-24] MEDS: LORazepam 2 MG/ML VIAL IVP PRN ×2 (08:16→15:18)
--- NOTE | 2018-05-24 08:16 | NUR ---
ATIVAN ADMINISTERED FOR EPISODE OF RESTLESSNESS AEB SHIFTING CONSTANTLY IN BED & GENERALIZED TREMORS. NO C/O PAIN OR DISCOMFORT, RESPIRATIONS EVEN & UNLABORED. FREQUENT VISUAL CHECKS DONE. BILAT UPPER SIDERAILS UP, BED IN LOWEST POSITION, ALARM ON.
[2018-05-24] MEDS: ENOXAPARIN 40 MG/0.4 ML SYR SUBQ SCH (08:17)
--- NOTE | 2018-05-24 09:16 | NUR ---
ATIVAN REASSESSMENT; FAMILY UPDATE: PT'S MOTHER RICHELLE CALLED REQUESTING FOR UPDATES ON PT. PT CURRENTLY ASLEEP IN BED, AROUSABLE BY AUDITORY STIMULI, RESPIRATIONS EVEN & UNLABORED. NO TREMORS NOTED AT THIS TIME. MOTHER NOTIFIED OF PT'S CURRENT STATUS. VERBALIZED UNDERSTANDING.
--- NOTE | 2018-05-24 10:45 | NUR ---
DR CAMPBELL AT BEDSIDE ASSESSING PT.
--- NOTE | 2018-05-24 11:31 | NUR ---
PT SITTING UP IN BED, DROWSY, NO C/O PAIN OR DISCOMFORT, RESPIRATIONS EVEN & UNLABORED. NO TREMBLING NOTED. YVONNE (S.O.) AT BEDSIDE. INFORMED S.O. PT IS FALL RISK. ENCOURAGED TO CALL STAFF FOR ASSISTANCE PRN. S.O. VERBALIZED UNDERSTANDING & AGREE TO MONITOR PT FOR FALL PRECAUTION DURING HIS VISIT. SON ZEFERINO CALLED REQUESTING UPDATES RE: PT. ADVISED TO SPEAK WITH S.O., SON AGREED. PHONE GIVEN TO S.O.
--- NOTE | 2018-05-24 13:20 | NUR ---
GALDINO, PT'S DAUGHTER CALLED TO REQUEST FOR UPDATE. INFORMED THAT PT IS CALM AT THE MOMENT, BUT HAS HAD EPISODES OF RESTLESSNESS. 05/24/18 LITHIUM LEVEL RESULT STILL PENDING AT THIS TIME. INFORMED GALDINO THAT FAMILY MEMBERS HAVEN BEEN CALLING MULTIPLE TIMES. ENCOURAGED TO HAVE ONE COMPUTATIONAL CHEMIST TO CALL FOR UPDATES, THEN INFORM OTHER FAMILY MEMBERS AD YARELIS TO AID NURSE'S FOCUS ON PT CARE. DAUGHTER AGREED & STATES SHE OR HER BROTHER ZEFERINO WILL NOTIFY OTHER FAMILY MEMBERS.
--- NOTE | 2018-05-24 15:18 | NUR ---
ATIVAN GIVEN: ATIVAN ADMINISTERED FOR RESTLESSNESS & TREMBLING. PT AAOx2, NO C/O PAIN. RESPIRATIONS EVEN UNLABORED. BED IN LOWEST POSITION, ALARM ON.
[2018-05-24] MEDS: DEXT 5% / NACL 0.45% 1,000 ML IV SCH (15:54)
[2018-05-24 16:00] VITALS: BP 107/74
--- NOTE | 2018-05-24 16:18 | NUR ---
PT IN BED, AWAKE, VERBALLY RESPONSIVE. PT CALM & COOPERATIVE. NO TREMBLING NOTED. NO C/O PAIN, RESPIRATIONS EVEN & UNLABORED. LEFT WRIST IV INTACT & ASYMPTOMATIC, IVF ONGOING. SITTER AT BEDSIDE FOR SAFETY MONITORING.
--- NOTE | 2018-05-24 18:10 | NUR ---
Mayank RUSSELL AT BEDSIDE FEEDING PT [facility]. PT WITH POOR APPETITE, ATE ONLY FEW BITES. NO C/O PAIN, RESPIRATIONS EVEN & UNLABORED. PT CALM & COOPERATIVE AT THIS TIME.
--- NOTE | 2018-05-24 19:19 | NUR ---
REPORT GIVEN TO PM SHIFT NURSE
--- NOTE | 2018-05-24 19:45 | NUR ---
RECD. SLEEPING IN BED, RESPIRATION EVEN AND UNLABORED. ANSWERS WHEN QUESTIONS ASKED BUT CONTINUED SLEEPING, AOX1, OCCASIONALLY TOSSING IN BED AND TURNING TO THE SIDES. SAFETY MEASURES ENFORCED. IV OF D5NS AT 75 ML/HR INFUSING, RIGHT WRIST G24. PLAN OF CARE DISCUSSED. NEEDS REINFORCEMENT. NO APPEARANCE OF PAIN NOTED 0/10.
--- NOTE | 2018-05-24 20:00 | NUR ---
Patient's Plan of Care was discussed and reviewed with CUT OUT OPERATOR: BESS COLVIN LVN.
--- NOTE | 2018-05-24 21:00 | NUR ---
CONTINUED SLEEPING BUT KEEP ON TOSSING IN BED, AND TURNING TO SIDES. SAFETY MEASURES ENFORCED.
[2018-05-25] VITALS: BP 128/86
--- NOTE | 2018-05-25 | NUR ---
SON CALLED AND REQUESTED TO SPEAK WITH PATIENT. RECOGNIZED SON AND SPEAK FOR A SHORT TIME ONLY. WENT BACK TO SLEEP.
--- NOTE | 2018-05-25 05:00 | NUR ---
SPONGE BATH GIVEN BY DATA WAREHOUSE MANAGER, BACK TO SLEEP AFTER BATH.
[2018-05-25] MEDS: DEXT 5% / NACL 0.45% 1,000 ML IV SCH (05:35)
[2018-05-25 06:25] LABS: ALBUMIN 3.3 g/dL (3.4-5.0); ANION GAP 12.5 (8-16); CARBON DIOXIDE 20.4 mmol/L (21-32); CREATININE 1.2 mg/dL (0.6-1.3); POTASSIUM 3.9 mmol/L (3.5-5.1); TOTAL BILIRUBIN 0.2 mg/dL (0.0-1.0)
[2018-05-25 06:30] LABS: BASOPHILS % (AUTO) 0.3 % (0.0-2.0); EOSINOPHILS # (AUTO) 0.1 K/uL (0-0.4); HEMATOCRIT 36.7 % (36-48); HEMOGLOBIN 11.6 g/dL (12.0-16.0); LYMPHOCYTES # (AUTO) 2.3 K/uL (2.5-16.5); MEAN CORPUSCULAR HEMOGLOBIN 29 pg (27-31); MEAN CORPUSCULAR HGB CONC 32 g/dL (33-37); MEAN CORPUSCULAR VOLUME 92.1 fL (80-94); MONOCYTES # (AUTO) 1.1 K/uL (0.8-1.0); MONOCYTES % (AUTO) 8.6 % (1.7-9.3); NEUTROPHILS % (AUTO) 72.1 % (42.2-75.2); PLATELET COUNT (AUTO) 247 K/uL (140-450); RED BLOOD CELL COUNT(AUTO) 3.99 MIL/uL (4.20-5.40); RED CELL DISTRIBUTION WIDTH 13.6 % (11.6-13.7); WHITE BLOOD COUNT (AUTO) 12.5 K/uL (4.8-10.8)
--- NOTE | 2018-05-25 07:15 | NUR ---
SAFETY MAINTAINED DURING SHIFT. ENDORSED TO AM SHIFT NURSE FOR CONTINUITY OF CARE.
--- NOTE | 2018-05-25 07:20 | NUR ---
RECEIVED PT FROM COATING MACHINE HELPER NURSEBESS, PT IS AWAKE LYING ON THE BED WITH SIDE RAILS UP AND CALL LIGHT WITHIN REACH, PT HAS AN IV LINE ON THE LEFT WRIST G. 22, INTACT WITH D5 1/2 NS INFUSING AT 100ML/HR. PT DENIES PAIN AND NO SIGN OF DISTRESS NOTED, SAFETY PRECAUTION ENFORCED, BED ALARM ACTIVATED, WILL CONTINUE TO MONITOR PT.
--- NOTE | 2018-05-25 07:58 | NUR ---
RECEIVED PATIENT ON ROOM AIR, O2 SAT 99%. DENIES SOB. NO RESPIRATORY DISTRESS NOTED AT THIS TIME. WILL CONTINUE TO MONITOR.
[2018-05-25 08:00] VITALS: BP 129/84
[2018-05-25] MEDS: ENOXAPARIN 40 MG/0.4 ML SYR SUBQ SCH (08:54)
--- NOTE | 2018-05-25 10:00 | NUR ---
CALLED DR. CAMPBELL AND LEFT A MESSAGE TO HIS VOICEMAIL REGARDING THE PT'S DISCHARGE ORDER FROM DR. SANTOYO.
--- NOTE | 2018-05-25 10:30 | NUR ---
ACKNOWLEDGED A DISCHARGE ORDER FRO THE PT FROM DR. SANTOYO, WILL CARRY OUT ORDER.
[2018-05-25] MEDS: LORazepam 2 MG/ML VIAL IVP PRN (10:34)
--- NOTE | 2018-05-25 10:44 | NUR ---
PT IS SO AGITATED, ALWAYS WANTING TO GET UP AND WALK, SITTER ON THE BEDSIDE BUT PT REFUSED TO BE COMPLIANT, MEDICATION WAS GIVEN TO MANAGE THE AGITATION AND ANXIETY.
--- NOTE | 2018-05-25 11:45 | NUR ---
RECEIVED A CALL BACK FROM DR. CAMPBELL AND REPORTED TO THE MD THAT PT HAS BEEN MEDICALLY CLEARED AND OK FOR DISCHARGE AND DR. CAMPBELL SAID THAT ON HIS STANDPOINT ALSO, PT CAN BE DISCHARGE AND NO REASON TO BE KEPT FOR CONFINEMENT, DR. CAMPBELL MADE A VERBAL ORDER TO PLACE AN OK DISCHARGE BY RETAIL DEPARTMENT SUPERVISOR FOR THE PT. ACKNOWLEDGED AND WILL CARRY OUT ORDER.
--- NOTE | 2018-05-25 11:51 | NUR ---
ACKNOWLEDGED A DISCHARGE OK BY KILN TESTER FOR THE PT, PER TELEPHONE ORDER FROM DR. CAMPBELL. WILL CARRY OUT ORDER.
--- NOTE | 2018-05-25 13:10 | NUR ---
DISCHARGED PT VIA WHEELCHAIR WITH FAMILY AND ASSISTED BY CLEMENTE KULKARNI, IV LINE AND ARM BANDS REMOVED, DISCHARGED TEACHINGS GIVEN AND PT VERBALIZED UNDERSTANDING. PT IS STABLE AT THIS TIME.
== END 2018-05-25 13:10 | disposition home or self-care (01) | DRG 463 ==
LOC: MED 01:50 → MTU 06:27
PROVIDERS: ADMIT Internal Medicine Pulmonary Disease; ATTEND Internal Medicine Pulmonary Disease
DX: N39.0 Urinary tract infection, site not specified (principal); G92 Toxic encephalopathy; N17.9 Acute kidney failure, unspecified; E86.0 Dehydration; I12.9 Hypertensive chronic kidney disease with stage 1 through stage 4 chronic kidney disease, or unspecified chronic kidney disease; N18.2 Chronic kidney disease, stage 2 (mild); E87.1 Hypo-osmolality and hyponatremia; J45.909 Unspecified asthma, uncomplicated; F31.9 Bipolar disorder, unspecified; E86.1 Hypovolemia; T43.595A Adverse effect of other antipsychotics and neuroleptics, initial encounter; T46.4X5A Adverse effect of angiotensin-converting-enzyme inhibitors, initial encounter; F41.9 Anxiety disorder, unspecified; Z88.8 Allergy status to other drugs, medicaments and biological substances; Z91.041 Radiographic dye allergy status; Y92.89 Other specified places as the place of occurrence of the external cause
CPT/HCPCS: 36415; 76770; 80053; 80178; 80305; 81001; 82948; 84439; 84443; 85025; 87040; 87081; 87086; 96361; 96374; 96376; 99285; G0482; J0696; J1650; J2060; J7042; J7060; Q0092

== ENCOUNTER 2018-07-04 14:52 | Inpatient (IN) | payer OTHER ==
[~2018-07-04] VITALS: Ht 160 cm; Wt 54.0 kg
[2018-07-04 14:59] VITALS: BP 113/97
[2018-07-04] MEDS ORDERED: ALPRAZolam 0.5 MG TAB PO ONE (15:35)
[2018-07-04 16:03] LABS: BASOPHILS % (AUTO) 0.5 % (0.0-2.0); EOSINOPHILS # (AUTO) 0.1 K/uL (0-0.4); EOSINOPHILS % (AUTO) 1.1 % (0.0-4.0); HEMATOCRIT 44.5 % (36-48); HEMOGLOBIN 14.6 g/dL (12.0-16.0); LYMPHOCYTES # (AUTO) 2.8 K/uL (2.5-16.5); LYMPHOCYTES % (AUTO) 32.8 % (20.5-51.1); MEAN CORPUSCULAR HEMOGLOBIN 30 pg (27-31); MEAN CORPUSCULAR HGB CONC 33 g/dL (33-37); MEAN CORPUSCULAR VOLUME 90.6 fL (80-94); MONOCYTES # (AUTO) 0.6 K/uL (0.8-1.0); MONOCYTES % (AUTO) 7.2 % (1.7-9.3); NEUTROPHILS % (AUTO) 58.4 % (42.2-75.2); PLATELET COUNT (AUTO) 190 K/uL (140-450); RED BLOOD CELL COUNT(AUTO) 4.92 MIL/uL (4.20-5.40); RED CELL DISTRIBUTION WIDTH 13.7 % (11.6-13.7); WHITE BLOOD COUNT (AUTO) 8.5 K/uL (4.8-10.8)
[2018-07-04 16:14] LABS: MAGNESIUM 1.9 mg/dL (1.8-2.4)
[2018-07-04 16:17] LABS: PROTHROMBIN TIME 9.9 secs (10.8-13.4)
[2018-07-04 16:20] LABS: BARBITURATE, URINE NEG. ng/ml (NEG <=200); BENZODIAZEPINE, URINE NEG. ng/mL (NEG <=200); CANNABINOID, URINE NEG. ng/mL (NEG <=50); COCAINE, URINE NEG. ng/mL (NEG <=300); OPIATE, URINE NEG. ng/mL (NEG <=2000); PHENCYCLIDINE SCREEN,URINE NEG. ng/mL (NEG <=25)
[2018-07-04] MEDS ORDERED: HYDR-7 PO (16:20)
[2018-07-04] MEDS ORDERED: ALPR0.5T2 PO (16:20)
[2018-07-04] MEDS ORDERED: OXCA150T28 PO (16:20)
[2018-07-04 16:21] LABS: ANION GAP 14.4 (8-16); CARBON DIOXIDE 28.3 mmol/L (21-32); CREATININE 1.1 mg/dL (0.6-1.3); POTASSIUM 3.7 mmol/L (3.5-5.1)
[2018-07-04 16:26] LABS: TOTAL BILIRUBIN 0.3 mg/dL (0.0-1.0)
[2018-07-04 16:27] LABS: ALBUMIN 4.3 g/dL (3.4-5.0)
[2018-07-04] MEDS ORDERED: ACETAMINOPHEN 325 MG TAB PO PRN (18:10)
[2018-07-04] MEDS ORDERED: ONDANSETRON 4 MG/2 ML VIAL IVP PRN (18:10)
[2018-07-04] MEDS ORDERED: LORazepam 2 MG/ML VIAL IVP PRN (18:10)
[2018-07-04] MEDS ORDERED: HYDROcodone/APAP 5/325 MG 1 TAB TAB PO PRN (18:10)
[2018-07-04 19:00] VITALS: BP 98/64
[2018-07-04] MEDS ORDERED: ALPRAZolam 0.5 MG TAB PO PRN (20:10)
[2018-07-05] VITALS (8 sets, daily range): BP systolic 93–118; BP diastolic 66–81
[2018-07-05 07:11] LABS: BASOPHILS % (AUTO) 0.3 % (0.0-2.0); EOSINOPHILS # (AUTO) 0.2 K/uL (0-0.4); EOSINOPHILS % (AUTO) 2.3 % (0.0-4.0); HEMATOCRIT 41.4 % (36-48); HEMOGLOBIN 13.6 g/dL (12.0-16.0); LYMPHOCYTES # (AUTO) 2.4 K/uL (2.5-16.5); LYMPHOCYTES % (AUTO) 32.6 % (20.5-51.1); MEAN CORPUSCULAR HEMOGLOBIN 30 pg (27-31); MEAN CORPUSCULAR HGB CONC 33 g/dL (33-37); MEAN CORPUSCULAR VOLUME 90.6 fL (80-94); MONOCYTES # (AUTO) 0.8 K/uL (0.8-1.0); MONOCYTES % (AUTO) 10.2 % (1.7-9.3); NEUTROPHILS # (AUTO) 4.1 K/uL (1.8-7.7); NEUTROPHILS % (AUTO) 54.6 % (42.2-75.2); PLATELET COUNT (AUTO) 171 K/uL (140-450); RED BLOOD CELL COUNT(AUTO) 4.57 MIL/uL (4.20-5.40); RED CELL DISTRIBUTION WIDTH 13.6 % (11.6-13.7); WHITE BLOOD COUNT (AUTO) 7.5 K/uL (4.8-10.8)
[2018-07-05 07:28] LABS: ALBUMIN 3.5 g/dL (3.4-5.0); ANION GAP 15.2 (8-16); CARBON DIOXIDE 26.5 mmol/L (21-32); CREATININE 1.1 mg/dL (0.6-1.3); POTASSIUM 3.7 mmol/L (3.5-5.1); TOTAL BILIRUBIN 0.2 mg/dL (0.0-1.0)
[2018-07-05] MEDS: LISINOPRIL 20 MG TAB PO SCH (09:00)
[2018-07-05] MEDS ORDERED: OXCARBAZEPINE 150 MG PO SCH (09:00)
[2018-07-05] MEDS: HYDROCHLOROTHIAZIDE 25 MG TAB PO SCH (09:00)
[2018-07-05] MEDS ORDERED: NON-FORMULARY ITEM (Lisinopril/Hydrochlorothiazide (Lisinopril-Hctz 20-12.5 mg Tab) 1 TAB) PO SCH (09:00)
[2018-07-05] MEDS: OXcarbazepine 150 MG TAB PO SCH ×2 (09:05→21:56)
[2018-07-05] MEDS: ENOXAPARIN 30 MG/0.3 ML SYR SUBQ SCH (09:08)
[2018-07-05] MEDS: ALPRAZolam 0.5 MG TAB PO SCH ×2 (10:51→21:00)
[2018-07-05] MEDS ORDERED: ceFAZolin 1,000 MG VIAL ONE ×2 (13:26→15:13)
[2018-07-05] MEDS ORDERED: LIDOCAINE/EPI 2% 1:100000 20 ML VIAL INJ ONE ×2 (13:26→15:47)
[2018-07-05] MEDS ORDERED: MIDAZOLAM 2 MG/2 ML VIAL ONE (13:53)
[2018-07-05] MEDS ORDERED: fentaNYL 0.05 MG/ML VIAL ONE (13:53)
[2018-07-05] MEDS ORDERED: HYDROmorphone 1 MG/ML AMP IVP PRN (16:50)
[2018-07-05] MEDS ORDERED: diphenhydrAMINE 50 MG/ML VIAL IVP PRN (16:50)
[2018-07-05] MEDS ORDERED: ONDANSETRON 4 MG/2 ML VIAL IVP PRN (16:50)
[2018-07-05] MEDS: LACTATED RINGERS 1,000 ML IV SCH (17:45)
[2018-07-05] MEDS: HYDROcodone/APAP 5/325 MG 1 TAB TAB PO PRN (18:54)
[2018-07-06 00:42] VITALS: BP 112/77
[2018-07-06] MEDS: HYDROcodone/APAP 5/325 MG 1 TAB TAB PO PRN ×3 (00:49→11:49)
[2018-07-06] MEDS: LACTATED RINGERS 1,000 ML IV SCH ×2 (01:06→02:59)
[2018-07-06 04:58] VITALS: BP 107/77
[2018-07-06 07:38] LABS: BASOPHILS % (AUTO) 0.4 % (0.0-2.0); EOSINOPHILS # (AUTO) 0.3 K/uL (0-0.4); EOSINOPHILS % (AUTO) 3.4 % (0.0-4.0); HEMATOCRIT 37.7 % (36-48); HEMOGLOBIN 12.3 g/dL (12.0-16.0); LYMPHOCYTES # (AUTO) 2.4 K/uL (2.5-16.5); LYMPHOCYTES % (AUTO) 27.4 % (20.5-51.1); MEAN CORPUSCULAR HEMOGLOBIN 30 pg (27-31); MEAN CORPUSCULAR HGB CONC 33 g/dL (33-37); MEAN CORPUSCULAR VOLUME 91.3 fL (80-94); MONOCYTES # (AUTO) 0.8 K/uL (0.8-1.0); MONOCYTES % (AUTO) 9.7 % (1.7-9.3); NEUTROPHILS # (AUTO) 5.1 K/uL (1.8-7.7); NEUTROPHILS % (AUTO) 59.1 % (42.2-75.2); PLATELET COUNT (AUTO) 171 K/uL (140-450); RED BLOOD CELL COUNT(AUTO) 4.13 MIL/uL (4.20-5.40); RED CELL DISTRIBUTION WIDTH 13.5 % (11.6-13.7); WHITE BLOOD COUNT (AUTO) 8.7 K/uL (4.8-10.8)
[2018-07-06 08:00] VITALS: BP 117/75
[2018-07-06 08:41] LABS: ANION GAP 12.4 (8-16); CARBON DIOXIDE 28.2 mmol/L (21-32); POTASSIUM 3.6 mmol/L (3.5-5.1); TOTAL BILIRUBIN 0.2 mg/dL (0.0-1.0)
[2018-07-06] MEDS: OXcarbazepine 150 MG TAB PO SCH (08:59)
[2018-07-06] MEDS: HYDROCHLOROTHIAZIDE 25 MG TAB PO SCH (08:59)
[2018-07-06] MEDS: LISINOPRIL 20 MG TAB PO SCH (09:00)
[2018-07-06] MEDS: ALPRAZolam 0.5 MG TAB PO SCH (09:00)
[2018-07-06] MEDS: ENOXAPARIN 30 MG/0.3 ML SYR SUBQ SCH (09:01)
[2018-07-06 12:00] VITALS: BP 123/82
[2018-07-06] MEDS ORDERED: LACTULOSE 20 GM/30 ML UDC PO PRN (12:55)
[2018-07-06] MEDS ORDERED: ACET-9525 PO (13:04)
== END 2018-07-06 15:30 | disposition home or self-care (01) | DRG 171 ==
LOC: MED 14:52 → MTU 18:10
PROVIDERS: ADMIT Internal Medicine; ATTEND Internal Medicine
PROC: 02H63JZ Insertion of Pacemaker Lead into Right Atrium, Percutaneous Approach (ICD-10-PCS; 2018-07-05)
PROC: 02HK3JZ Insertion of Pacemaker Lead into Right Ventricle, Percutaneous Approach (ICD-10-PCS; 2018-07-05)
PROC: 0JH606Z Insertion of Pacemaker, Dual Chamber into Chest Subcutaneous Tissue and Fascia, Open Approach (ICD-10-PCS; principal; 2018-07-05 14:00)
DX: I44.1 Atrioventricular block, second degree (principal); N18.3 Chronic kidney disease, stage 3 (moderate); E87.1 Hypo-osmolality and hyponatremia; J44.9 Chronic obstructive pulmonary disease, unspecified; F31.9 Bipolar disorder, unspecified; I12.9 Hypertensive chronic kidney disease with stage 1 through stage 4 chronic kidney disease, or unspecified chronic kidney disease; F41.9 Anxiety disorder, unspecified; F17.200 Nicotine dependence, unspecified, uncomplicated; I45.9 Conduction disorder, unspecified; Z88.8 Allergy status to other drugs, medicaments and biological substances; Z91.041 Radiographic dye allergy status; Z79.899 Other long term (current) drug therapy
CPT/HCPCS: 36415; 71045; 80053; 80305; 83735; 83880; 84443; 84484; 85025; 85610; 85730; 87081; 93005; 99285; G0482; J0690; J1170; J1650; J2001; J2250; J3010; J7060; J7120; Q0092

== ENCOUNTER 2018-11-25 15:16 | Emergency (ER) | payer OTHER ==
[~2018-11-25] VITALS: Ht 160 cm; Wt 62.1 kg
[~2018-11-25 15:16] MED LIST changes: +ACET-9525 PO; +ALPR0.5T2 PO; -ESK300 PO; +HYDR-7 PO; +OXCA150T28 PO
[2018-11-25 15:19] VITALS: BP 136/92
--- NOTE | 2018-11-25 15:39 | NUR ---
PT AMB TO BED 7
--- NOTE | 2018-11-25 15:43 | NUR ---
PATIENT PRESENTS TO ED WITH C/O PRESSURE HEADACHE X1 WEEK .HX: HTN, BIPOLA MANIC DEPRESSIVE, PACE MAKER, KIDNEY PROBLEM . DENIES N/V/D; SKIN IS PINK/WARM/DRY; AAOX4 WITH EVEN AND STEADY GAIT; LUNGS CLEAR BL; HR EVEN AND REGULAR; PT DENIES ANY FEVER, CP, SOB, OR COUGH AT THIS TIME; PATIENT STATES PAIN OF 9/10 AT THIS TIME; VSS; PATIENT POSITIONED FOR COMFORT; HOB ELEVATED; BEDRAILS UP X2; BED DOWN. ER MD MADE AWARE OF PT STATUS.
[2018-11-25] MEDS ORDERED: ALPRAZolam 0.5 MG TAB PO ONE (16:10)
--- NOTE | 2018-11-25 16:23 | NUR ---
PT TO CT VIA WC
--- NOTE | 2018-11-25 16:32 | NUR ---
returned via wc from radiology
[2018-11-25 17:48] VITALS: BP 136/92
--- NOTE | 2018-11-25 17:49 | NUR ---
and i spoke with pt in length---pt will f/u with her pmd pt was concerned why she gets headaches---encouraged to increase h20 and minimize smoking also f/u with pmd and psych. ct read handed to pt---dc instructions also given to pt's son at bedside
--- NOTE | 2018-11-25 17:51 | NUR ---
Patient discharged with v/s stable. Written and verbal after care instructions given and explained. Patient alert, oriented and verbalized understanding of instructions. Ambulatory with steady gait. All questions addressed prior to discharge. ID band removed. Patient advised to follow up with PMD. Rx of fioricet given. Patient educated on indication of medication including possible reaction and side effects. Opportunity to ask questions provided and answered.
== END 2018-11-25 17:48 | disposition home or self-care (01) ==
LOC: MED 15:16
DX: R51 Headache (principal); F32.9 Major depressive disorder, single episode, unspecified; F31.9 Bipolar disorder, unspecified; I12.9 Hypertensive chronic kidney disease with stage 1 through stage 4 chronic kidney disease, or unspecified chronic kidney disease; N18.3 Chronic kidney disease, stage 3 (moderate); J45.909 Unspecified asthma, uncomplicated; F17.200 Nicotine dependence, unspecified, uncomplicated; Z79.899 Other long term (current) drug therapy; Z88.5 Allergy status to narcotic agent; Z88.8 Allergy status to other drugs, medicaments and biological substances
CPT/HCPCS: 70450; 99284

== ENCOUNTER 2019-01-04 17:25 | Emergency (ER) | payer OTHER ==
--- NOTE | 2019-01-04 17:31 | NUR ---
CALLED PT FROM LOBBY - NO RESPONSE
--- NOTE | 2019-01-04 17:42 | NUR ---
PATIENT LEFT WITHOUT BEING SEEN BY DR. DOMINGUEZ. NO FURTHER CARE PROVIDED FOR PATIENT.
== END 2019-01-04 17:42 | disposition left against medical advice (07) ==
LOC: MED 17:25
DX: Z53.21 Procedure and treatment not carried out due to patient leaving prior to being seen by health care provider (principal)

== ENCOUNTER 2019-01-05 11:57 | Emergency (ER) | payer OTHER ==
[~2019-01-05] VITALS: Ht 167.6 cm; Wt 59.9 kg
[2019-01-05 12:16] VITALS: BP 129/92
--- NOTE | 2019-01-05 12:23 | NUR ---
PT AMB TO ER LOBBY WITH STEADY GAIT. VITALS STABLE AT THIS TIME. PT AA0X4
--- NOTE | 2019-01-05 13:14 | NUR ---
Patient ambulated to bed 1 with family. RN evaluating patient at bedside.
--- NOTE | 2019-01-05 13:49 | NUR ---
C/O HEART PALPATION & POSSIBLY HITTING HER PACEMAKER WHEN SHE FELL YESTERDAY. PT STATES SHE FELL OFF THE COUCH YESTERDAY MORNING BUT ISNT SURE IF SHE HIT HER PACEMAKER OR NOT.STATES SHE WANTS THE DOCTOR TO "CHECK HER PACEMAKER AND MAKE SURE EVERYTHING IS OKAY". SHE DENIES PAIN,N/V, WEAKNESS. SIDE RAIL UP X1, BED IN LOW POSITION.
--- NOTE | 2019-01-05 14:13 | NUR ---
Dr. Mondragon evaluating patient at bedside.
--- NOTE | 2019-01-05 14:49 | NUR ---
RAVEN EMT AT BEDSIDE FOR EKG
--- NOTE | 2019-01-05 15:00 | NUR ---
PATIENT EXPRESSED WISH TO WAIT OUTSIDE IN LOBBY TO WAIT FOR RESULTS.
[2019-01-05 15:06] LABS: BASOPHILS # (AUTO) 0.1 K/uL (0.00-0.22); BASOPHILS % (AUTO) 0.7 % (0.0-2.0); EOSINOPHILS # (AUTO) 0.1 K/uL (0-0.4); HEMATOCRIT 46.6 % (36-48); HEMOGLOBIN 15.5 g/dL (12.0-16.0); LYMPHOCYTES # (AUTO) 2.9 K/uL (2.5-16.5); MEAN CORPUSCULAR HEMOGLOBIN 30 pg (27-31); MEAN CORPUSCULAR HGB CONC 33 g/dL (33-37); MEAN CORPUSCULAR VOLUME 91.1 fL (80-94); MONOCYTES # (AUTO) 0.6 K/uL (0.8-1.0); NEUTROPHILS # (AUTO) 6.4 K/uL (1.8-7.7); NEUTROPHILS % (AUTO) 63.3 % (42.2-75.2); PLATELET COUNT (AUTO) 201 K/uL (140-450); RED BLOOD CELL COUNT(AUTO) 5.11 MIL/uL (4.20-5.40); RED CELL DISTRIBUTION WIDTH 14.2 % (11.6-13.7)
[2019-01-05 15:16] LABS: ANION GAP 12.7 (8-16); CARBON DIOXIDE 28.9 mmol/L (21-32); CREATININE 1.2 mg/dL (0.6-1.3); POTASSIUM 4.6 mmol/L (3.5-5.1); PROTHROMBIN TIME 10.2 secs (10.8-13.4)
[2019-01-05 15:22] LABS: ALBUMIN 3.8 g/dL (3.4-5.0); TOTAL BILIRUBIN 0.3 mg/dL (0.0-1.0)
[2019-01-05 15:47] LABS: MAGNESIUM 1.9 mg/dL (1.8-2.4); THYROID STIMULATING HORMONE 0.35 uIU/mL (0.34-3.74)
[2019-01-05 16:18] VITALS: BP 138/87
--- NOTE | 2019-01-05 16:18 | NUR ---
Patient discharged with v/s stable. Written and verbal after care instructions given and explained. Patient verbalized understanding. Ambulatory with steady gait. All questions addressed prior to discharge. Advised to follow up with PMD.
== END 2019-01-05 16:18 | disposition home or self-care (01) ==
LOC: MED 11:57
DX: R00.2 Palpitations (principal); J45.909 Unspecified asthma, uncomplicated; I12.9 Hypertensive chronic kidney disease with stage 1 through stage 4 chronic kidney disease, or unspecified chronic kidney disease; N18.3 Chronic kidney disease, stage 3 (moderate); Z95.0 Presence of cardiac pacemaker; Z88.8 Allergy status to other drugs, medicaments and biological substances; Z79.899 Other long term (current) drug therapy
CPT/HCPCS: 36415; 71046; 80053; 80178; 83735; 83880; 84443; 84484; 85025; 85610; 85730; 93005; 99284